=== PATIENT | female | born 1935 | race Caucasian/White ===

== ENCOUNTER 2025-07-02 06:59 | Emergency (ER) | payer MEDICARE, OTHER, SELFPAY ==
[2025-07-02 07:12] VITALS: BP 155/80; PULSE 87; RESP 18; TEMP 36.1; O2SAT 96; BMI 25.8
[2025-07-02 07:16] VITALS: PULSE 66
--- NOTE | 2025-07-02 07:31 | ED_ITS ---
HPI - Extremity Injury (Lower) General Chief Complaint: Extremity Injury, Lower Stated Complaint: Possible stitches on right leg Time Seen by Provider: 07/02/25 07:30 Source: patient, RN notes reviewed and old records reviewed Mode of arrival: Ambulatory Limitations: no limitations History of Present Illness HPI Narrative: 89-year-old female history of atrial fibrillation on Eliquis, hypertension, dyslipidemia, gout. Patient presents with laceration to her right lower leg. States she got out of bed it was dark and she bumped into the corner of the bed fairly hard which has a hard would not edge. She states she caught her leg. She did fall to her knee. Denies any other injuries. Denies hitting her head. She has a history of neuropathy but no new numbness or tingling. No other skin changes. Patient states her tetanus is not been updated in years. She denies any allergies to medications. Related Data Previous Rx's ?Medication ?Instructions ?Recorded bacitracin 500 unit/gram topical 1 applic topical BID #30 grams 07/02/25 ointment Allergies Allergy/AdvReac Type Severity Reaction Status Date / Time No Known Drug Allergies Allergy Verified 07/02/25 07:18 Review of Systems Review of Systems ROS Unobtainable: All systems reviewed & are unremarkable except as noted in HPI and below Exam Narrative Exam Narrative: GENERAL: Alert and oriented x three, female in mild distress HEENT: Head normocephalic, atraumatic, EOMI, pupils reactive, face symmetric, moist mucous membranes NECK: Supple, full range of motion CARDIOVASCULAR: Regular rate and rhythm without murmurs, rubs or gallops. RESPIRATORY: Breath sounds equal bilaterally, no wheezes rales or rhonchi. ABDOMEN: Soft, nontender. Normoactive bowel sounds all 4 quadrants. No guarding or rebound, rigidity, no mass : No CVA tenderness EXTREMITIES: Normal range of motion, no clubbing or edema. Neurovascularly intact. Patient has about a 5 cm laceration in an acute angle her right anterior lateral eldridge. There is exposure of subcutaneous tissue. No tendon or ligamentous involvement appreciated. Patient has 2+ pulses bilaterally both feet are warm coloration. Full range of motion. Normal flexion-extension. No bony tenderness. NEUROLOGICAL: Cranial nerves II through XII grossly intact. Moving all extremities SKIN: Warm, dry, no petechiae, no rashes or lesions. Initial Vital Signs Initial Vital Signs: Vital Signs Temperature 96.9 F L 07/02/25 07:12 Pulse Rate 87 07/02/25 07:12 Respiratory Rate 18 07/02/25 07:12 Blood Pressure 155/80 H 07/02/25 07:12 Pulse Oximetry 96 07/02/25 07:12 Oxygen Delivery Method Room Air 07/02/25 07:12 Procedures Laceration Repair Laceration 1: Site: lower extremity Side (If applicable): right Size (cm): 5.8 Description: flap, irregular and clean Depth: simple, single layer Local Anesthetic: lidocaine 2% Amount of anesthesia used (mL): 8 Pre-repair: wound explored and irrigated extensively Skin layer closed with: nylon Skin layer suture size: 4-0 Number of sutures: 15 Technique: simple, interrupted Course Orders Ordered: Discontinued Medications Bacitracin (Bacitracin Oint 0.9 Gm Pckt) 1 applic TOP NOW ONE Stop: 07/02/25 08:53 Last Admin: 07/02/25 08:55 Dose: 1 applic Documented By: JONH Diphtheria/Tetanus/Acell Pertussis (Tet,Diph,Pertuss(Acell),Vac/Pf 0.5 Ml Syringe) 0.5 ml IM .ONCE ONE Stop: 07/02/25 08:56 Last Admin: 07/02/25 09:29 Dose: 0.5 ml Documented By: JONH Lidocaine HCl (Lidocaine 2% Inj Sdv 5ml) 10 ml INJ NOW ONE Stop: 07/02/25 07:34 Last Admin: 07/02/25 08:05 Dose: 10 ml Documented By: RAFAT Vital Signs Vital signs: Vital Signs - 8 hr 07/02/25 09:17 07/02/25 09:18 07/02/25 09:18 Pulse Rate 76 66 Blood Pressure 195/89 H Pulse Oximetry 96 96 MDM - Extremity Injury (Lower) MDM Narrative Medical decision making narrative: 89-year-old female with laceration to the right lower extremity, family notes patient did leave a strip of skin behind at home as well. We will require suture repair. Patient's tetanus was updated. Patient's laceration came together fairly well but at the apex the skin was very friable and started tear. We will have to have some slight gap that is quite a bit of tension. Discussed with the patient TAVR wrap to help give some compression and short term follow up for rechecked a wound. She is traveling back home tomorrow so discussed return precautions where she lives, wound care. All questions answered. Discharge Plan Departure Patient Disposition: Home Clinical Impression: Laceration of left lower extremity Instructions: DI for Laceration Repair Activity Restrictions/Additional Instructions: Follow up with your physician in 7-10 days for suture removal. Touch base with your physician returns to keep a close eye on the wound. You did have your tetanus updated today. Because your missing a strip of skin there is a lot of tension on the laceration, it is at risk for the sutures to break. I would use a dressing to give some compression to help it heal for the next several days. There is a very small tear at the corner of the sutures and there will be a little bit of a gap as it heals. Wound Care: Keep wound(s) clean and dry. Wash daily with soap and water only. Do not use over the counter products (alcohol or peroxide)on the wounds unless instructed by a physician, can use a topical triple antibiotic ointment daily with bandage changes. If wound condition worsens (increased/expanding redness, developing fluid blisters, or worsening pain), either contact your doctor for an urgent re- assessment , or return to the Emergency Department. Return if fever greater than 100.4 Fahrenheit, increased swelling, increasing pain or worsening symptoms such as increased discharge or spreading redness, new numbness, weakness or any other new or concerning changes. Prescriptions: New bacitracin 500 unit/gram ointment 1 applic topical BID Qty: 30 0RF Stand Alone Forms: Patient Portal/API
[2025-07-02] MEDS: LIDOCAINE 2% INJ SDV 5ML 10 ML INJ (08:05)
[2025-07-02] MEDS: BACITRACIN OINT 0.9 GM PCKT 1 APPLIC TOP (08:55)
[2025-07-02 09:17] VITALS: PULSE 76; O2SAT 96
[2025-07-02 09:18] VITALS: BP 195/89; PULSE 66; O2SAT 96
[2025-07-02] MEDS: TET,DIPH,PERTUSS(ACELL),VAC/PF 0.5 ML SYRINGE IM (09:29)
== END 2025-07-02 09:36 | disposition home or self-care (01) ==
PROVIDERS: Emergency Provider Emergency Medicine
DX: S81.811A Laceration without foreign body, right lower leg, initial encounter (principal); W45.8XXA Other foreign body or object entering through skin, initial encounter; Z23 Encounter for immunization
CPT/HCPCS: 12002; 90471; 99283; 90715